=== PATIENT | female | born 1955 | race Caucasian/White ===

== ENCOUNTER 2020-06-28 08:51 | Outpatient (CLI) | payer MEDICARE, SELFPAY ==
--- NOTE | ~2020-06-28 | MM_ITS ---
EXAMINATION: MM screening phil BI w ally HISTORY: Screening mammogram TECHNIQUE: Craniocaudal and mediolateral oblique 3-D tomosynthesis images were obtained and synthetic 2-D images were generated. CAD analysis was submitted and interpreted. COMPARISON: 07/2018, 11/02/2014 bilateral digital screening mammogram examinations BREAST PARENCHYMAL COMPOSITION: There are scattered areas of fibroglandular density. FINDINGS: There is no evidence of suspicious mass, calcification, or architectural distortion to sugg est malignancy in either breast. There has been no suspicious interval change. IMPRESSION: 1. No mammographic evidence of malignancy. 2. Recommend routine screening mammography in one year. BI-RADS Category 1: Negative Reviewed, dictated and finalized at location A. ER
== END 2020-06-28 08:52 | disposition home or self-care (01) ==
LOC: ANHIMG 08:56
PROVIDERS: PCP Family Medicine; Visit Provider Family Medicine
DX: Z12.31 Encounter for screening mammogram for malignant neoplasm of breast (principal)
CPT/HCPCS: 77063; 77067

== ENCOUNTER 2021-08-15 08:07 | Outpatient (CLI) | payer MEDICARE, SELFPAY ==
--- NOTE | ~2021-08-15 | MM_ITS ---
EXAMINATION: MM screening [facility] BI w ally HISTORY: Screening TECHNIQUE: Craniocaudal and mediolateral oblique 3-D tomosynthesis images were obtained and synthetic 2-D images were generated. CAD analysis was submitted and interpreted. COMPARISON: Comparison to multiple prior studies sequentially, with oldest reviewed study dated 12/2012. BREAST PARENCHYMAL COMPOSITION: There are scattered areas of fibroglandular density. FINDINGS: There is no evidence of suspicious mass, calcification, or architectural distortion to sugg est malignancy in either breast. There has been no suspicious interval change. IMPRESSION: 1. No mammographic evidence of malignancy. 2. Recommend routine screening mammography in one year. BI-RADS Category 1: Negative Reviewed, dictated and finalized at location A. [employer]
== END 2021-08-15 08:08 | disposition home or self-care (01) ==
LOC: ANHIMG 08:09
PROVIDERS: PCP Family Medicine; Visit Provider Physician Assistant
DX: Z12.31 Encounter for screening mammogram for malignant neoplasm of breast (principal)
CPT/HCPCS: 77063; 77067

== ENCOUNTER → 2021-10-19 04:50 | Outpatient (CLI) | payer MEDICARE, SELFPAY ==
[2021-10-19 13:01] LABS: SARS-CoV-2 RNA PCR Negative
== END ==
PROVIDERS: PCP Family Medicine; Visit Provider Internal Medicine Gastroenterology
DX: Z01.812 Encounter for preprocedural laboratory examination (principal); Z20.822 Contact with and (suspected) exposure to COVID-19
CPT/HCPCS: C9803; U0003; U0005

== ENCOUNTER 2021-10-22 01:51 | Day surgery (SDC) | payer MEDICARE, SELFPAY ==
[2021-10-10 14:29] VITALS: BMI 24.2
--- NOTE | 2021-10-20 12:21 | P.PNAN_ITS ---
Anes - Initial Pre Proc Eval Procedure: Operation Date: 10/22/21 09:00 Proposed Procedures p Screening Colonoscopy - Braxton Yusuf MD Date/Time: 10/20/21 12:21 Surgeon: Braxton Yusuf MD Pre Op Diagnosis: family hx of colon ca Patient Data Age: 66 Gender: F Height: 1.65 m Weight: 66 kg Allergies Allergy/AdvReac Type Severity Reaction Status Date / Time No Known Allergies Allergy Unverified 10/22/21 08:10 Home Medications Medication Instructions Recorded Confirmed Type levothyroxine 88 mcg PO DAILY 10/10/21 10/22/21 History Patient hx anesthesia problems: none Family hx anesthesia problems: none Results Review: All pre-operative results and documents have been reviewed as part of the pre-operative evaluation. [facility] Past Medical History Medical History (Updated 10/20/21 @ 14:20 by Braxton Yusuf MD) Hypothyroidism Social History Social History Smoking status: Never smoker Alcohol intake: current Alcohol use details: 5-10 per month Living arrangements: with family Spiritual care concerns: No Anes - Eval Final PreProcedure Day of Procedure 10/20/21 12:21 Patient weight: normal Heart: regular rate and rhythm Lungs: clear to auscultation and normal air movement Airway: Mallampati scale class II Neurological: alert and oriented Last oral intake: >/= 8 hours ASA classification: II Emergent: no Anesthetic plan: proceed Anesthesia type and monitoring: general GIVS and standard monitoring Results Review: All pre-operative results and documents have been reviewed as p art of the pre-operative evaluation. Informed Consent: The patient's anesthetic plan and its attendant risks and benefits were discussed with the patient/family/POA. Questions were solicited and answers provided to the satisfaction of the patient/family/POA.
--- NOTE | 2021-10-20 14:16 | PM.HPGS ---
History of Present Illness History of Present Illness Consent: Risks, benefits, and alternatives have been discussed and questions answered. Patient agrees to proceed with procedure. Chief complaint: family hx of colon ca Narrative: Jeannette Monroe is a 66 year old female referred for colon cancer screening. His mother and maternal aunt had colon cancer. She had a polyp removed A few years ago. Review of Systems Review of Systems: All systems reviewed & are unremarkable except as noted in HPI and below PMFSH Past Medical History Medical History Hypothyroidism Social History Social History Smoking status: Never smoker Alcohol intake: current Alcohol use details: 5-10 per month Living arrangements: with family Spiritual care concerns: No Meds Home Medications and Allergies Home Medications Medication Instructions Recorded Confirmed Type levothyroxine 88 mcg PO DAILY 10/10/21 10/22/21 History Allergies Allergy/AdvReac Type Severity Reaction Status Date / Time No Known Allergies Allergy Unverified 10/22/21 08:10 Exam Resp: Auscultation: clear to auscultation bilaterally Cardio: Rate: regular rate Rhythm: regular rhythm GI: GI Palp: Yes Soft to palpation and No Tenderness to palpation present (GI) Assessment and Plan Assessment and plan (1) Colon cancer screening: Code(s): Z12.11 - Encounter for screening for malignant neoplasm of colon Status: Acute Assessment and Plan: Colonoscopy with possible biopsy or polypectomy or cautery or injection of substances.
[2021-10-22 08:11] VITALS: BP 117/74; PULSE 61; RESP 16; TEMP 36.7; O2SAT 100
[2021-10-22] MEDS: LACTATED RINGERS 1,000 ML 150 ML IV CONT (08:19)
[2021-10-22 09:18] VITALS: BP 86/57; PULSE 61; RESP 16; O2SAT 97
[2021-10-22 09:28] VITALS: BP 107/60; PULSE 64; RESP 16; O2SAT 100
[2021-10-22 09:38] VITALS: BP 109/63; PULSE 62; RESP 16; O2SAT 100
== END 2021-10-22 09:48 | disposition home or self-care (01) ==
PROVIDERS: PCP Family Medicine; Visit Provider Internal Medicine Gastroenterology
PROC: 0DJD8ZZ Inspection of Lower Intestinal Tract, Via Natural or Artificial Opening Endoscopic (ICD-10-PCS; CPT 45378; principal; 2021-10-22 09:00)
DX: Z12.11 Encounter for screening for malignant neoplasm of colon (principal); Z86.010 Personal history of colon polyps; Z80.0 Family history of malignant neoplasm of digestive organs; E03.9 Hypothyroidism, unspecified
CPT/HCPCS: G0105; C9803; J2704; J7120; U0003; U0005

== ENCOUNTER 2022-04-26 13:29 | Emergency (ER) | payer MEDICARE, SELFPAY ==
--- NOTE | 2022-04-26 13:52 | ED.EYEPROB ---
HPI - Eye Problem General Chief complaint: Eye Problems Stated complaint: eye irritation Time Seen by Provider: 04/26/22 13:52 Source: patient and RN notes reviewed Mode of arrival: ambulatory Limitations: no limitations History of Present Illness HPI Narrative: 67-year-old female presents concern for left eye irritation,, pain, watery drainage. Reports she woke up this morning with the symptoms. She reports she may have gotten an eyelash in her eye. Reports she is flush the eye used eyedrops and saline solution without relief. She reports light sensitivity MD chief complaint: eye redness Related Data Home Medications Medication Instructions Recorded Confirmed levothyroxine 88 mcg tablet 88 mcg PO DAILY 10/10/21 04/26/22 Allergies Allergy/AdvReac Type Severity Reaction Status Date / Time No Known Allergies Allergy Unverified 04/26/22 13:46 Review of Systems Review of Systems: CONSTITUTIONAL: Denies malaise, chills, sweats, or fever. EYES: Denies visual changes. Reports left eye redness, irritation, watery discharge. ENT: Denies rhinorrhea, congestion, sinus pain, otalgia or sore throat. SKIN: Denies rash or itching. NEUROLOGIC: Denies numbness, weakness, or headache. PSYCHIATRIC: Denies anxiety or depression. All systems reviewed & are unremarkable except as noted in HPI and below PMFSH Past Medical History Medical History Hypothyroidism Social History Social History Smoking status: Never smoker Alcohol intake: current Alcohol use details: 5-10 per month Spiritual care concerns: No Comments At time of signature, agree with nursing past medical, surgical, social and family history. There is no relevant family history pertinent to the presenting complaint Exam Narrative: GENERAL: Well-appearing, well-nourished, and in no acute distress. HEAD: Normocephalic, atraumatic. EYES: PERRLA, right conjunctive and sclera clear, and EOMI. No nystagmus. Left conjunctivae clear, sclera mildly injected with corneal abrasion noted upon Mitchell lamp exam, see note. Bilateral upper andand lower eyelid unremarkable, no periorbital edema noted ENT: Nares clear, turbinates pink, no rhinorrhea or epistaxis. Mucous membranes moist. NECK: Supple. CHEST: No respiratory distress. Speaks in full sentences. HEART: Regular rate and rhythm. SKIN: Warm, dry, no visible rash. NEURO: Alert and oriented x3. PSYCH: Normal mood and affect Course Course Emergency Course: Patient is aware of diagnosis, understands and agrees to treatment plan. Anticipatory guidance given. Patient agrees to follow-up as directed and is aware of reasons to seek care at the emergency department. Portions of this record may have been created with voice recognition software Level of Care: Express Care Visit Vital Signs Vital signs: Reviewed. Procedures Other Procedure Procedure 1: Other Procedure: Tetracaine 1 gtt instilled in left eye, fluorescein stain applied. Corneal abrasion noted upon mitchell lamp exam at approximately 12 o'clock in relation to the pupil. Eye washed with NS 100 ml. No foreign bodies or Harpreet sign noted. MDM - Eye Problem MDM Narrative Medical decision making narrative: Consideration of the following conditions may be warranted for the presenting problem, they are not final diagnoses: Bacterial conjunctivitis, allergic conjunctivitis, viral conjunctivitis, foreign body, blepharitis, chalazion, hordeolum, corneal abrasion, preseptal cellulitis, orbital cellulitis. No evidence of proptosis, ophthalmoplegia, vision loss, pain with eye movement. Exam findings show no acute concerns or changes; patient is non-toxic appearing and is in no distress. Patient is appropriate for outpatient treatment and follow-up. Critical Care Time Critical Care Time Critical Care Time: No Discharge Plan Discharge Clini
--- NOTE | 2022-04-26 14:00 | PC.NURSE ---
Eye kit prepared for [employer]. Tetracaine and fluorescein pulled from [employer].
== END 2022-04-26 14:15 | disposition home or self-care (01) ==
PROVIDERS: Emergency Provider Nurse Practitioner; PCP Family Medicine
DX: S05.02XA Injury of conjunctiva and corneal abrasion without foreign body, left eye, initial encounter (principal); X58.XXXA Exposure to other specified factors, initial encounter; E03.9 Hypothyroidism, unspecified
CPT/HCPCS: 99213; G0463

== ENCOUNTER 2023-12-16 14:24 | Outpatient (CLI) | payer MEDICARE, SELFPAY ==
--- NOTE | ~2023-12-16 | MM_ITS ---
EXAMINATION: MM screening phil BI w ally HISTORY: Screening mammogram TECHNIQUE: Craniocaudal and mediolateral oblique 3-D tomosynthesis images were obtained and synthetic 2-D images were generated. CAD analysis was submitted and interpreted. COMPARISON: 08/15/2021, 06/28/2020 bilateral screening mammograms BREAST PARENCHYMAL COMPOSITION: The breasts are heterogeneously dense, which may obscure small masses . FINDINGS: There is no evidence of suspicious mass, calcification, or architectural distortion to sugg est malignancy in either breast. There has been no suspicious interval change. IMPRESSION: 1. No mammographic evidence of malignancy. 2. Recommend routine screening mammography in one year. BI-RADS Category 1: Negative Reviewed, dictated and finalized at location A.
== END 2023-12-16 14:25 | disposition home or self-care (01) ==
PROVIDERS: PCP Family Medicine; Visit Provider Family Medicine
DX: Z12.31 Encounter for screening mammogram for malignant neoplasm of breast (principal)
CPT/HCPCS: 77063; 77067

== ENCOUNTER 2024-09-30 22:57 | Emergency (ER) | payer MEDICARE, SELFPAY ==
[2024-09-30 23:00] VITALS: BP 113/78; PULSE 70; RESP 18; O2SAT 97
[2024-09-30 23:18] LABS: Basophils Percent Auto 0.3 % (0.2-1.2); Eosinophils Absolute Auto 0.1 K/mm3 (0-0.3); Eosinophils Percent Auto 0.9 % (0-4.4); Hematocrit 37.1 % (37.0-47.0); Hemoglobin 12.9 g/dL (12.0-15.0); Immature Granulocyte Absolute 0.03 K/mm3 (0.00-0.031); Immature Granulocyte Percent A 0.2 % (0-0.5); Lymphocytes Absolute Auto 2.26 K/mm3 (0.9-3.2); Lymphocytes Percent Auto 18.3 % (18.3-44.2); Mean Corpuscular HGB Conc 34.8 g/dl (32-36); Mean Corpuscular Hemoglobin 32.2 pg (26-34); Mean Corpuscular Volume 92.5 fl (80-100); Mean Platelet Volume 9.3 fl (7.4-10.4); Monocytes Absolute Auto 1.7 K/mm3 (0.1-0.6); Monocytes Percent Auto 13.4 % (2.6-8.5); Neutrophils Absolute Auto 8.2 K/mm3 (1.3-6.7); Neutrophils Percent Auto 66.9 % (45.5-73.1); Platelet Count Result 389 k/mm3 (150-375); Red Blood Count 4.01 M/mm3 (4.2-5.4); Red Cell Distribution Width 12.4 % (11.5-14.5); White Blood Count 12.3 K/mm3 (4.5-10.0)
[2024-09-30 23:29] LABS: Alanine Aminotransferase 18 U/L (6-35); Albumin Level 3.9 g/dL (3.5-5.1); Alkaline Phosphatase 102 U/L (38-126); Anion Gap 11 mmol/L (4-12); Aspartate Amino Transferase 26 U/L (14-36); Bilirubin,Total 0.5 mg/dL (0.2-1.3); Blood Urea Nitrogen 16 mg/dL (7-17); Calcium 9.5 mg/dL (8.4-10.2); Carbon Dioxide 27 mmol/L (22-30); Chloride 97 mmol/L (98-107); Estimated CRCL calculation 52 ml/min; Estimated Glomerular Filt Rate > 60; Glucose 113 mg/dL (65-110); INR 1.1; Lipase 149 U/L (23-300); Potassium 3.9 mmol/L (3.4-5.0); Prothrombin Time 14.2 Seconds (11.1-14.7); Sodium 135 mmol/L (137-145)
[2024-09-30 23:31] LABS: Partial Thromboplastin Time 32.7 Seconds (22.3-36.8)
[2024-09-30 23:40] LABS: Troponin I < 0.012 ng/mL (0.000-0.034)
[2024-09-30 23:53] LABS: Influenza A QL RT-PCR Negative (Negative); Influenza B QL RT-PCR Negative (Negative); RSV RNA, RT-PCR Negative (Negative); SARS-CoV-2 RNA PCR Negative (Negative)
[2024-09-30 23:54] VITALS: BP 118/73; PULSE 63; RESP 18; O2SAT 95
--- NOTE | 2024-10-01 00:40 | ED.CHESTPAIN ---
HPI - Chest Pain General Chief Complaint: Chest Pain Stated Complaint: CP Time Seen by Provider: 09/30/24 23:59 History of Present Illness HPI narrative: Patient is a 69-year-old female presents to the ER with a 2 day history of L chest pain. She reports she had a ?coughing fit on Friday night and her pain started shortly afterwards. Earlier today patient started experiencing extreme chest pain that radiates up her L chest, so her called EMS. Patient denies shortness of breath except for when she has coughing fits. She reports she has had of fever intermittently over the last 2 days with a T-max of 100.3?. Patient reports she has taken Tylenol at home for the pain. She endorses a history of thyroid issues and was a cigarette smoker ?years ago. Patient denies wheezing, back pain, abdominal pain. Related Data Home Medications ?Medication ?Instructions ?Recorded ?Confirmed ?Last Taken ?Type ascorbic acid 1,000 1 ea PO DAILY 05/22/23 01/27/24 Unknown History nv-[id number]-[id number] powder effervescent pack (Emergen-C) calcium lactate 100 mg PO TID 05/22/23 01/27/24 Unknown History cholecalciferol (vitamin D3) 25 25 mcg PO DAILY 05/22/23 01/27/24 Unknown History mcg (1,000 unit) capsule magnesium citrate 100 mg capsule 100 mg PO DAILY 05/22/23 01/27/24 Unknown History omega 3-anu-qsq-fish oil 100 1 cap PO DAILY 05/22/23 01/27/24 Unknown History mg-160 mg-1,000 mg capsule (Fish Oil) Allergies Allergy/AdvReac Type Severity Reaction Status Date / Time No Known Allergies Allergy Verified 05/22/23 13:03 Review of Systems Review of Systems: All systems reviewed & are unremarkable except as noted in HPI and below PMFSH Past Medical History Medical History Osteoporosis Family history of colon cancer Hypothyroidism Surgical History Surgical History History of open reduction and internal fixation (ORIF) procedure left are fracture in 2016 History of hysteroscopy Tubal repair age 26. Family History Family History Mother Carcinoma of colon Father Cirrhosis of liver Sibling No problems noted. Social History Social History Smoking status: Former smoker Additional smoking assessment comments: Smoked about 1/2 pack per day for 40 years Alcohol intake: current Drinks per week: 1 Substance use: former Substance use type: marijuana Living arrangements: with family Occupation/Education: retired Additional occupation/education comments: school teacher Gender identity (if verbalized by the patient): Female Spiritual care concerns: No Exam Narrative: GENERAL: Well appearing, well-nourished, non-toxic, in no acute distress. HEAD: Normocephalic, atraumatic. NECK: Supple. No adenopathy, no masses. RESPIRATORY: Airway patent, respirations nonlabored. Clear to auscultation bilaterally, no rales, rhonchi, wheezing. CARDIOVASCULAR: Regular rate and rhythm without murmurs, rubs, or gallops. Peripheral pulses 2+ and equal bilaterally. ABDOMINAL: Soft, nontender, nondistended, no hepatosplenomegaly. Normoactive BS. MUSCULOSKELETAL: Moves all extremities. Strength/ROM intact without gross deformities. SKIN: Warm, dry, normal color. No rashes. NEURO: A&O X3. Speech clear. Cranial nerves II-XII grossly intact. Steady gait. No ataxic movements. PSYCHIATRIC: Appropriate mood and affect. Normal interaction. Course Vital Signs Vital signs: Vital Signs Pulse Rate 70 09/30/24 23:00 Respiratory Rate 18 09/30/24 23:00 Blood Pressure 113/78 09/30/24 23:00 Pulse Oximetry 97 09/30/24 23:00 Oxygen Delivery Room Air 09/30/24 23:00 Pulse Rate 63 10/01/24 02:55 Respiratory Rate 18 10/01/24 02:55 Blood Pressure 124/57 L 10/01/24 02:55 Pulse Oximetry 95 10/01/24 02:55 Oxygen Delivery Room Air 09/30/24 23:55 MDM - Chest Pain MDM Narrative Medical decision making narrative: Patient is a 69-year-old female presents to the ER with a 2 day history of L chest pain. She reports she had a ?coughing fit on Friday night and her pain started shortly afterwards. Earlier today patient started experiencing extreme chest pain that radiates up her L chest, so her called EMS. Patient denies shortness of breath except for when she has coughing fits. She reports she has had of fever intermittently over the last 2 days with a T-max of 100.3?. Patient reports she has taken Tylenol at home for the pain. She endorses a history of thyroid issues and was a cigarette smoker ?years ago. Patient denies wheezing, back pain, abdominal pain. Labs Ordered: CBC, CMP, lipase, INR, PTT, troponin, TSH, D-dimer Imaging Ordered: Chest x-ray, CTA PE scan Medications Ordered: Toradol 15 mg, GI cocktail, 1 L normal saline IV bolus, Augmentin PO, Azithromycin PO Results: Pt's chest x-ray indicates Prominent markings in the lower lobes. Possibility of bronchitis versus early pneumonia can't be excluded. Clinical correlation advised. Diagnosis: atypical chest pain, pneumonia Risks: HEART score: low risk HEART Pathway for Early Discharge in Acute Chest Pain from [employer] on 10/01/2024 All calculations should be rechecked by clinician prior to use RESULT SUMMARY: 3 points HEART Pathway Score Low risk 0.9-1.7% 30-day MACE Repeat troponin at 3 hours and if negative, discharge home with outpatient follow-up. INPUTS: History ?> 0 = Slightly suspicious EKG ?> 0 = Normal Age ?> 2 = >=5 Risk factors ?> 1 = 1-2 risk factors Initial troponin ?> 0 = <=Normal limit Consults: Patient Education/Shared MDM: Results shared with patient. She endorses improvement following medication administration. Patient strongly advised to maintain hydration status upon discharge and follow-up with her PCP. She will be discharged home with prescription for Augmentin and Azithromycin. Strict return precautions provided. Patient verbalized understanding is in agreement with plan. Vital signs stable at time of discharge. All questions answered. Differential Diagnosis Differential diagnosis: Likely atypical chest pain, costochondritis, chest pain and other (costochondritis, pneumonia) Lab Data Attestation: I reviewed the patient's lab results. 09/30/24 23:13 09/30/24 23:13 Labs: Lab Results 09/30/24 09/30/24 10/01/24 Range/Units 23:10 23:13 02:20 WBC 12.3 H (4.5-10.0) K/mm3 RBC 4.01 L (4.2-5.4) M/mm3 Hgb 12.9 (12.0-15.0) g/dL Hct 37.1 (37.0-47.0) % MCV 92.5 (80-100) fl MCH 32.2 (26-34) pg MCHC 34.8 (32-36) g/dl RDW 12.4 (11.5-14.5) % Plt Count 389 H (150-375) k/mm3 MPV 9.3 (7.4-10.4) fl Immature Gran % (Auto) 0.2 (0-0.5) % Neut % (Auto) 66.9 (45.5-73.1) % Lymph % (Auto) 18.3 (18.3-44.2) % [place] % (Auto) 13.4 H (2.6-8.5) % Eos % (Auto) 0.9 (0-4.4) % Baso % (Auto) 0.3 (0.2-1.2) % Lymph # (Auto) 2.26 (0.9-3.2) K/mm3 [place] # (Auto) 1.7 H (0.1-0.6) K/mm3 Eos # (Auto) 0.1 (0-0.3) K/mm3 Baso # (Auto) 0.0 (0.0-0.1) K/mm3 Abs Immat Gran (auto) 0.03 (0.00-0.031) K/mm3 Absolute Neuts (auto) 8.2 H (1.3-6.7) K/mm3 Absolute Nucleated RBC 0.000 (0.0-0.012) K/mm3 Nucleated RBC % 0.0 (0.0-0.2) % PT 14.2 (11.1-14.7) Seconds INR 1.1 APTT 32.7 (22.3-36.8) Seconds D-Dimer 0.50 H (<0.48) ug/mL Sodium 135 L (137-145) mmol/L Potassium 3.9 (3.4-5.0) mmol/L Chloride 97 L (98-107) mmol/L Carbon Dioxide 27 (22-30) mmol/L Anion Gap 11 (4-12) mmol/L BUN 16 (7-17) mg/dL Creatinine 0.77 (0.7-1.0) mg/dL Estim Creat Clear Calc 52 ml/min Estimated GFR > 60 (59 - ) Glucose 113 H (65-110) mg/dL Calcium 9.5 (8.4-10.2) mg/dL Total Bilirubin 0.5 (0.2-1.3) mg/dL AST 26 (14-36) U/L ALT 18 (6-35) U/L Alkaline Phosphatase 102 (38-126) U/L Troponin I < 0.012 < 0.012 (0.000-0.034) ng/mL Total Protein 7.0 (6.3-8.2) g/dL Albumin 3.9 (3.5-5.1) g/dL Lipase 149 (23-300) U/L TSH (Reflex) 19.000 H (0.465-4.68) uIU/mL Free T4 Pending Influenza A (RT-PCR) Negative (Negative) Influenza B (RT-PCR) Negative (Negative) RSV (RT-PCR) Negative (Negative) SARS-CoV-2 RNA (RT-PCR) Negative (Negative) Imaging Data Attestation: I personally reviewed and interpreted this imaging study as follows: Radiologist's impression: Impressions Chest X-Ray 10/01/24 00:12 IMPRESSION: Prominent markings in the lower lobes. Possibility of bronchitis versus early pneumonia can't be excluded. Clinical correlation advised. 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 Follow-up with primary care provider in the next 2-3 days. Take all medications as prescribed. Complete your whole dose of antbiotics. Patient Language: Croatian Prescriptions: New amoxicillin-pot clavulanate 875-125 mg tablet 1 tablet PO Q12H 7 Days Qty: 20 0RF prednisone 50 mg tablet 50 mg PO DAILY Qty: 5 0RF azithromycin 250 mg tablet See Rx Instructions PO .COMPLEX Qty: 6 0RF Rx Instructions: For 250 mg dose pack: take 500 mg today (day 1), then 250 mg for 4 days (days 2-5) albuterol sulfate [Ventolin HFA] 90 mcg/actuation HFA aerosol inhaler 2 puff inhalation QID PRN (Reason: shortness of breath or wheezing) Qty: 8.5 0RF benzonatate 100 mg capsule 100 mg PO TID Qty: 15 0RF No Action cholecalciferol (vitamin D3) 25 mcg (1,000 unit) capsule 25 mcg PO DAILY calcium lactate 100 mg calcium tablet 100 mg PO TID magnesium citrate 100 mg capsule 100 mg PO DAILY Fish Oil 100-160-1,000 mg capsule 1 cap PO DAILY Emergen-C 1,000 mg powder effervescent in packet 1 ea PO DAILY levothyroxine 88 mcg tablet 88 mcg PO DAILY Qty: 90 1RF Follow-up/Referrals: Vic Heath MD [Primary Care Provider] -
[2024-10-01] MEDS: SODIUM CHLORIDE 0.9% IV 1,000 ML 999 ML IV CONT (00:47)
[2024-10-01] MEDS: KETOROLAC 15 MG/ML VIAL (*BKC) IV PUSH (00:48)
[2024-10-01] MEDS: BELLADONNA ALK/PHENOB ELIX 10 ML, MAG HYDROX/ALUMINUM HYD/SIMETH 30 ML, LIDOCAINE 2% VI... PO (00:50)
[2024-10-01 02:46] LABS: Troponin I < 0.012 ng/mL (0.000-0.034)
[2024-10-01 02:55] VITALS: BP 124/57; PULSE 63; RESP 18; O2SAT 95
[2024-10-01] MEDS: AMOXICILLIN/CLAVULANATE K 875-125 MG TAB 1 TABLET PO (04:12)
[2024-10-01] MEDS: AZITHROMYCIN 250 MG TABLET 500 MG PO (04:12)
[2024-10-01 05:00] VITALS: BP 127/86; PULSE 58; RESP 17; TEMP 36.5; O2SAT 100
[2024-10-01 05:03] LABS: Free T4 Free Thyroxine Reflex 1.56 ng/dL (0.78-2.19)
[2024-10-01 05:59] LABS: Total Triiodothyronine (T3) 0.97 NG/ML (0.97-1.69)
== END 2024-10-01 06:08 | disposition home or self-care (01) ==
PROVIDERS: Student in an Organized Health Care Education/Training Program; Emergency Provider Registered Nurse; PCP Family Medicine
DX: J18.9 Pneumonia, unspecified organism (principal); E06.3 Autoimmune thyroiditis; R07.89 Other chest pain; Z20.822 Contact with and (suspected) exposure to COVID-19; M81.0 Age-related osteoporosis without current pathological fracture; Z87.891 Personal history of nicotine dependence; Z79.899 Other long term (current) drug therapy; R94.31 Abnormal electrocardiogram [ECG] [EKG]
CPT/HCPCS: 36415; 71045; 71275; 80053; 83690; 84439; 84443; 84480; 84484; 85025; 85380; 85610; 85730; 87637; 93005; 96361; 96374; 99284; A9270; J1885; J7030; Q9967

== ENCOUNTER 2024-11-02 10:44 | Outpatient (CLI) | payer MEDICARE, SELFPAY ==
--- NOTE | ~2024-11-02 | PE_ITS ---
EXAMINATION: PET skull to mid thigh DATE: 11/02/2024 12:29 INDICATION: Solitary pulmonary nodule TECHNIQUE: Blood glucose level was 95 mg/dL. 10.078 mCi of 18-fluorodeoxyglucose (18-FDG) was adminis tered i.v. Low dose computed tomography (CT) images were acquired from the base of the brain to the p roximal thighs for attenuation correction and anatomic localization. Positron emission tomography (PE T) images were acquired in the same distribution beginning 58 minutes after injection. Images includi ng fused PET/CT images were reconstructed in axial, coronal, and sagittal planes. Automated exposure control technique was employed. The dose-length product was 555.78mGy-cm. COMPARISON: Chest CT dated 10/01/2024 FINDINGS: Head/neck: There is symmetric increased activity in the oral cavity and ocular muscles without CT correlate, lik mohan physiologic. Thyroid is small with relatively symmetric diffuse uptake in the left and right thyr oid lobes with maximal SUV of 6.7 on the left and 7.2 on the right. No pathologically enlarged cervic al lymphadenopathy or suspicious foci of increased FDG uptake in the visualized head or neck. Chest: Groundglass opacity in the dependent aspect of the lower lobes consistent with atelectasis. Calcite n odules at the lingula and calcified left hilar lymph nodes consistent with old granulomatous disease. Resolution of the previously seen tree-in-bud opacities in the right middle lobe and small regions o f consolidation at the periphery of the right middle lobe and lingula most likely represented atelect asis or pneumonia. No other pulmonary nodules, FDG avid lesions in the lungs or pleural effusion. Hea rt size is normal. No pericardial effusion. Thoracic aorta is normal caliber. No pathologically enlar ged or FDG avid thoracic lymphadenopathy. Abdomen/pelvis/proximal thighs: Physiologic renal accumulation and excretion of FDG activity in the kidneys, bladder and along portio ns of ureters. Normal degree and heterogenous pattern of increased uptake throughout the liver withou t radiologic correlate or dominant FDG avid lesion. The gallbladder, pancreas, spleen and bilateral a drenal glands are normal. Mild uptake scattered throughout the bowels without radiologic correlate, a lso likely physiologic. Normal appendix. No other abnormal foci of increased FDG uptake or pathologic ally enlarged lymphadenopathy in the abdomen, pelvis or proximal thighs. Musculoskeletal: Mild lumbar dextroscoliosis. Severe cervical, thoracic and lumbar spondylosis. Likely physiologic mil d increased muscular activity at the bilateral shoulders, slightly more prominent on the right and wi thout radiologic correlate. No suspicious lytic, blastic or abnormally FDG avid bone lesions. IMPRESSION: 1. Interval resolution of prior nodular opacities at the right middle lobe and lingula which was like ly related to pneumonia. No lesion suspicious for primary malignancy or metastatic disease in the nec k, chest, abdomen or pelvis. 2. Diffuse mild increased uptake throughout the small left and right thyroid lobes without radiologic correlate on CT and with appearance of thyroid ultrasound 11/02/14 suggestive of chronic lymphocytic ( Santos's) thyroiditis. Reviewed, dictated and finalized at location A. IMPRESSION: 1. Interval resolution of prior nodular opacities at the right middle lobe and lingula which was likely related to pneumonia. No lesion suspicious for primary malignancy or metastatic disease in the neck, chest, abdomen or pelvis. 2. Diffuse mild increased uptake throughout the small left and right thyroid lo bes without radiologic correlate on CT and with appearance of thyroid ultrasoun d 11/02/14 suggestive of chronic lymphocytic (Santos's) thyroiditis.
[2024-11-02 11:01] LABS: Glucose Point of Care 95 mg/dl (65-105)
--- OUTSIDE RECORDS SUMMARY | 2024-11-02 11:59 | XMS_ITS | Continuity of Care Document ---
Author Organization [facility] Address [address] [place] [address] Phone Care Team Providers [employer] Space Systems Operations Manager Name Role Phone Mo Potts DO Unavailable Unavailable Advance Directives Directive Yes / No Effective Date File Name No Information Encounters Encounter Description Practice Location Reason(s) For Visit Diagnoses Date Provider Providers Copied on Encounter [facility], [address], [place], [place], [id number], [place] tel:[phone] [facility] No Information Katlyn Diop. [address] [facility], [place], [address], [place]. tel: [phone] Family History Family Member Type Diagnosis Age At Onset No Information Payers Payer name Insurance type Covered republican ID Authoriza tion(s) No Information Social History Type Description Quantity Date Captured Comments Sex Female Smoking Status No Information Chief Complaint And Reason For Visit No Information Reason For Referral Reason For Referral No Information History Of Present Illness Encounter Date Complaint History Of Prese nt Illness No Information Functional Status Date Functional Assessmen t No Information Instructions Date Instruction Additional Infor mation No Information Assessments Type Assessment Date No Information Patient Care Teams Name Effective Dates (start - stop) Status Members No Information
== END 2024-11-02 10:45 | disposition home or self-care (01) ==
PROVIDERS: PCP Family Medicine; Visit Provider Family Medicine
DX: R91.1 Solitary pulmonary nodule (principal); E07.9 Disorder of thyroid, unspecified
CPT/HCPCS: 78815; A9552

== ENCOUNTER 2025-01-06 12:45 | Outpatient (CLI) | payer MEDICARE, SELFPAY ==
--- OUTSIDE RECORDS SUMMARY | 2025-01-06 13:17 | XMS_ITS | Continuity of Care Document ---
Author Organization [facility] Address [address] [place] [address] Phone Care Team Providers Care Optometric Assistant Name Role Phone Mo Potts DO Unavailable Unavailable Advance Directives Directive Yes / No Effective Date File Name No Information Encounters Encounter Description Practice Location Reason(s) For Visit Diagnoses Date Provider Providers Copied on Encounter [facility], [address], [place], [place], [id number], [place] tel:[phone] [facility] No Information Katlyn Diop. [id number] [facility], [place], [address], [place]. tel: [phone] Family History Family Member Type Diagnosis Age At Onset No Information Payers Payer name Insurance type Covered democrat ID Authoriza tion(s) No Information Social History [...]
== END 2025-01-06 12:46 | disposition home or self-care (01) ==
LOC: ANHAUDASC 12:47
PROVIDERS: PCP Family Medicine
DX: H90.3 Sensorineural hearing loss, bilateral (principal)
CPT/HCPCS: 92557; 92567

== ENCOUNTER 2025-02-11 14:39 | Outpatient (CLI) | payer MEDICARE, SELFPAY ==
--- NOTE | ~2025-02-11 | MM_ITS ---
EXAMINATION: MM screening phil BI w ally HISTORY: Screening TECHNIQUE: Craniocaudal and mediolateral oblique 3-D tomosynthesis images were obtained and synthetic 2-D images were generated. CAD analysis was submitted and interpreted. COMPARISON: Comparison to multiple prior studies sequentially, with oldest reviewed study dated 11/2017. BREAST PARENCHYMAL COMPOSITION: Not dense: There are scattered areas of fibroglandular density. FINDINGS: There is a new mass in the periareolar location of the right breast located slightly superi or to the nipple on MLO view. The left breast is stable without evidence for malignancy. IMPRESSION: 1. New periareolar mass of the right breast. 2. Additional mammographic views and possible breast ultrasound are recommended. BI-RADS Category 0: Incomplete: Needs additional imaging evaluation. Reviewed, dictated and finalized at location [] IMPRESSION: 1. New periareolar mass of the right breast. 2. Additional mammographic views and possible breast ultrasound are recommended . BI-RADS Category 0: Incomplete: Needs additional imaging evaluation.
--- OUTSIDE RECORDS SUMMARY | 2025-02-11 14:42 | XMS_ITS | Continuity of Care Document ---
Author Organization [facility] Address [address] [place] [address] Phone Care Team Providers Care Information Assurance Name Role Phone oM Potts DO Unavailable Unavailable Advance Directives Directive Yes / No Effective Date File Name No Information Encounters Encounter Description Practice Location Reason(s) For Visit Diagnoses Date Provider Providers Copied on Encounter [facility], [address], [place], [place], [id number], [place] tel:[phone] [facility] No Information Katlyn Diop. [address] [facility], [place], [address], [place]. tel: [phone] Family History Family Member Type Diagnosis Age [...]
== END 2025-02-11 14:40 | disposition home or self-care (01) ==
LOC: ANHIMG 14:41
PROVIDERS: PCP Family Medicine; Visit Provider Family Medicine
DX: Z12.31 Encounter for screening mammogram for malignant neoplasm of breast (principal); R92.8 Other abnormal and inconclusive findings on diagnostic imaging of breast
CPT/HCPCS: 77063; 77067

== ENCOUNTER 2025-03-03 12:41 | Outpatient (CLI) | payer MEDICARE, SELFPAY ==
--- NOTE | ~2025-03-03 | MMUS_ITS ---
EXAMINATION: US breast RT limited, MM diagnostic phil RT w ally HISTORY: Follow-up right breast asymmetry TECHNIQUE: Additional 3-D tomosynthesis images of the right breast were performed and synthetic 2-D i mages were generated. CAD analysis was submitted and interpreted. High resolution Limited right breas t ultrasound was performed. COMPARISON: Comparison to multiple prior studies sequentially, with oldest reviewed study dated 11/2017. BREAST PARENCHYMAL COMPOSITION: Not dense: There are scattered areas of fibroglandular density. FINDINGS: MAMMOGRAPHIC FINDINGS: There are no suspicious masses, calcifications or architectural distortion in the right breast with s pot compression or mediolateral views. ULTRASOUND: Limited right breast ultrasound: Normal heterogeneous echotexture without focal solid or cystic mass. IMPRESSION: 1. No evidence for malignancy in the right breast. 2. Routine yearly screening mammogram and regular clinical breast examination are recommended. BI-RADS Category 1: Negative Reviewed, dictated and finalized at location B. IMPRESSION: 1. No evidence for malignancy in the right breast. 2. Routine yearly screening mammogram and regular clinical breast examination a re recommended. BI-RADS Category 1: Negative
--- OUTSIDE RECORDS SUMMARY | 2025-03-03 12:49 | XMS_ITS | Continuity of Care Document ---
Author Organization [facility] Address [address] [place] [address] Phone Care Team Providers Care Forensic Economist Name Role Phone Mo Potts DO Unavailable Unavailable Advance Directives Directive Yes / No Effective Date File Name No Information Encounters Encounter Description Practice Location Reason(s) For Visit Diagnoses Date Provider Providers Copied on Encounter [facility], [address], [place], [place], [id number], [place] tel:[phone] [facility] No Information Katlyn Diop. [address] [facility], [place], [address], [place]. tel: [phone] Family History Family Member Type Diagnosis Age At Onset No Information Payers Payer name Insurance type Covered libertarian ID Authoriza tion(s) No Information Social History [...]
== END 2025-03-03 12:42 | disposition home or self-care (01) ==
LOC: ANHIMG 12:46
PROVIDERS: PCP Family Medicine; Visit Provider Family Medicine
DX: R92.8 Other abnormal and inconclusive findings on diagnostic imaging of breast (principal)
CPT/HCPCS: 76642; 77061; 77065; G0279